=== PATIENT | female | born 1970 | race Caucasian/White ===

== ENCOUNTER 2017-06-11 22:00 | Emergency (ER) | payer OTHER ==
[~2017-06-11] VITALS: Ht 160 cm; Wt 85.7 kg
[~2017-06-11 22:00] MED LIST: ALBU8I INH; DUONI NEB; GUAI100S6 PO; PRED50 PO; XANA0.5T PO; ZITHTAB6 PO
[2017-06-11 22:05] VITALS: BP 141/74; PULSE 73; RESP 18; TEMP 97.5; O2SAT 94
[2017-06-11] MEDS ORDERED: VENTAER INH (22:20)
[2017-06-11] MEDS ORDERED: ALPR.5 PO (22:20)
[2017-06-11] MEDS ORDERED: IPRASOL INH (22:22)
[2017-06-11 22:25] VITALS: BP 138/73; PULSE 70; RESP 20; O2SAT 94
--- NOTE | 2017-06-11 22:35 | PD ---
HPI Chief Complaint: Respiratory Symptoms Time Seen by Provider: 22:20 Travel History International Travel<30 days: No Contact w/Intl Traveler<30days: No Traveled to known affect area: No History of Present Illness HPI The patient is a 47-year-old female that smokes one pack a day and was seen on the 14 of this month for bronchitis at [facility]. She is put on Zithromax and steroids. She cut back smoking only to 5-6 cigarettes a day. She still is wheezing and states the problem is gotten worse. She has only the chest tightness that she has with her usual bronchitis. She is been in multiple times for bronchitis before. PFSH Past Medical History Anxiety: Yes COPD: Yes Diminished Hearing: No Endocrine: Yes (THYROID MORELIA'S) Respiratory: Yes (COPD) Immunizations Current: Yes Thyroid Disease: Yes (Hashimotos, Graves Disease) Tetanus Vaccination: < 5 Years Influenza Vaccination: Yes ?: Not : 7 Para: 4 Miscarriage: 1 : 2 Ovarian Cysts: Yes Tubal Ligation: Yes Past Surgical History Section: Yes Cholecystectomy: Yes Gynecologic Surgery: Yes () Tonsillectomy: Yes Social History Alcohol Use: No Tobacco Use: Yes (1 PPD) Substance Use: No Allergies-Medications (Allergen,Severity, Reaction): Coded Allergies: metronidazole (Unverified Allergy, Intermediate, RASH, 06/11/17) Reported Meds & Prescriptions Reported Meds & Active Scripts Active Reported Duoneb (Ipratropium-Albuterol Neb) 0.5-2.5 Mg/3 Ml Neb 1 Nebule INH Q4HR NEB PRN Xanax (Alprazolam) 0.5 Mg Tab 0.5 Mg PO Q6H PRN Ventolin Hfa 18 GM Inh (Albuterol Sulfate) 90 Mcg/Act Aer 1 Puff INH Q4H PRN Review of Systems Except as stated in HPI: all other systems reviewed are Neg Physical Exam Narrative GENERAL: The patient is alert, oriented 3 in slight respiratory distress. Her vital signs are normal, oximetry is 94%. SKIN: Focused skin assessment warm/dry. HEAD: Atraumatic. Normocephalic. EYES: Pupils equal and round. No scleral icterus. No injection or drainage. ENT: No nasal bleeding or discharge. Mucous membranes pink and moist. NECK: Trachea midline. No JVD. CARDIOVASCULAR: Regular rate and rhythm. No murmur appreciated. RESPIRATORY: No accessory muscle use. Bilateral wheezes are heard in all lung mccann. Breath sounds equal bilaterally. GASTROINTESTINAL: Abdomen soft, non-tender, nondistended. Hepatic and splenic margins not palpable. MUSCULOSKELETAL: No obvious deformities. No clubbing. No cyanosis. No edema. NEUROLOGICAL: Awake and alert. No obvious cranial nerve deficits. Motor grossly within normal limits. Normal speech. PSYCHIATRIC: Appropriate mood and affect; insight and judgment normal. Data Data Last Documented VS Vital Signs Date Time Temp Pulse Resp B/P (MAP) Pulse Ox O2 Delivery O2 Flow Rate FiO2 06/11/17 23:18 95 Nasal Cannula 2.00 06/11/17 23:15 71 20 142/79 (100) 06/11/17 22:05 97.5 Orders Orders B-Type Natriuretic Peptide (06/11/17 22:35) Troponin I (06/11/17 22:35) Iv Access Insert/Monitor (06/11/17 22:35) Ecg Monitoring (06/11/17 22:35) Oximetry (06/11/17 22:35) Oxygen Administration (06/11/17 22:35) Chest, Pa & Lat (06/11/17 22:35) Sodium Chloride 0.9% Flush (Ns Flush) (06/11/17 22:45) Methylprednisolone So Succ Inj (Solumedr (06/11/17 22:45) Albuterol-Ipratropium Neb (Duoneb Neb) (06/11/17 22:45) Arterial Blood Gas (Abg) (06/11/17 ) Labs Laboratory Tests Test 06/11/17 22:55 06/11/17 23:00 Troponin I LESS THAN 0.02 NG/ML B-Type Natriuretic Peptide 57 PG/ML Blood Gas Puncture Site RT RADIAL Blood Gas Patient Temperature 98.6 Blood Gas HCO3 29 mmol/L Blood Gas Base Excess 4.5 mmol/L Blood Gas Oxygen Saturation 88 % Arterial Blood pH 7.41 Arterial Blood Partial Pressure CO2 46 mmHG Arterial Blood Partial Pressure O2 73 mmHG Arterial Blood Oxygen Content 18.3 Vol % Arterial Blood Carboxyhemoglobin 6.5 % Arterial Blood Methemoglobin 1.0 % Blood Gas Hemoglobin 14.8 G/DL Blood Gas Inspired Oxygen 21 % [facility] Medical Decision Making Medical Screen Exam Complete: Yes Emergency Medical Condition: Yes Medical Record Reviewed: Yes Interpretation(s) The chest x-ray shows no acute disease. The blood gases on room air show pH 7.41, CO2 46, PO2 73 with O2 sat 88% and carboxyhemoglobin level is 6.5. Differential Diagnosis Pneumonia, bronchitis, asthma, allergic reaction, tobacco abuse, COPD with acute exacerbation Narrative Course The patient has bronchitis. Even though she has bronchitis, she continues to smoke. She did get fairly good relief with the DuoNeb treatments here at the emergency department. She will be given a prescription for Levaquin and a tapered course of prednisone. The carboxyhemoglobin does play a part in in activating her hemoglobin. She does have availability of an oxygen concentrator at home and she can put this on 2-3 L nasal cannula and reduce the carboxyhemoglobin level at home. That is if she will quit smoking. Diagnosis Primary Impression: Bronchitis, acute Additional Impression: Tobacco abuse Additional Instructions: As we discussed, discontinue smoking. You can use the oxygen concentrator that you have at home on 2-3 L nasal cannula to reduce the level of carbon monoxide poisoning from the cigarettes. Follow-up with a primary care physician. If worse, return to emergency department. Med/Other Pt SpecificInfo: Prescription(s) given Scripts Prednisone (Prednisone) 50 Mg Tab 50 MG PO BID for X 4 days than daily X 4 days, #12 TAB 0 Refills Prov: Armani Alexander MD 06/11/17 Levofloxacin (Levaquin) 500 Mg Tablet 500 MG PO DAILY for Infection for 10 Days, #10 TAB 0 Refills Prov: Armani Alexander MD 06/11/17 Disposition: 01 DISCHARGE HOME Condition: Stable Armani Alexander MD Jun 11, 2017 22:35
[2017-06-11] MEDS ORDERED: SODIUM CHLORIDE 0.9% FLUSH 10 ML FLUSH IVF PRN (22:45)
[2017-06-11] MEDS ORDERED: methylPREDNISolone SOD SUCC 125 MG/2 ML VIAL IV PUSH ONE (22:45)
[2017-06-11] MEDS: RESP: ALBUTEROL 2.5 MG/IPRATROPIUM 0.5 MG NEB (SCH) INH (22:47)
[2017-06-11 23:00] VITALS: O2SAT 94
--- NOTE | 2017-06-11 23:02 | RADRPT ---
EXAM DATE/TIME: 06/11/2017 22:43 [place] COMPARISON: No previous studies available for comparison. INDICATIONS : Cough, shortness of breath for 6 days MEDICAL HISTORY : Chronic obstructive pulmonary disease. SURGICAL HISTORY : None. ENCOUNTER: Initial ACUITY: 4 - 6 days PAIN SCORE: 5/10 LOCATION: Bilateral chest FINDINGS: PA and lateral views of the chest demonstrate the lungs to be symmetrically aerated without evidence of mass, infiltrate or effusion. The cardiomediastinal contours are unremarkable. Osseous structure s are intact. CONCLUSION: No acute disease. Michi Mora MD on June 11, 2017 at 23:01 Board Certified Radiologist. This report was verified electronically.
[2017-06-11 23:13] LABS: BLOOD GAS BASE EXCESS 4.5 mmol/L (-2-2); BLOOD GAS CARBOXYHEMOGLOBIN 6.5 % (0-4); BLOOD GAS HCO3 29 mmol/L (22-26); BLOOD GAS O2 HGB SATURATION 88 % (90-100); BLOOD GAS OXYGEN CONTENT 18.3 Vol % (12.0-20.0); BLOOD GAS PCO2 46 mmHG (38-42); BLOOD GAS PO2 73 mmHG (61-120); BLOOD GAS TOTAL HGB 14.8 G/DL (12.0-16.0); TEMP CORR TO 98.6
[2017-06-11 23:14] LABS: CRITICAL VALUE YES; DRAW SITE RT RADIAL; FIO2 21 %; NUMBER OF ARTERIAL PUNCTURES 1; STAT YES; ULNAR PULSE Y
[2017-06-11 23:15] VITALS: BP 142/79; PULSE 71; RESP 20; O2SAT 95
[2017-06-11] MEDS ORDERED: PRED50 PO (23:39)
[2017-06-11] MEDS ORDERED: LEVA500T20 PO (23:39)
[2017-06-12 00:45] VITALS: BP 118/55; PULSE 68; RESP 18; O2SAT 97
[2017-06-12 01:27] VITALS: BP 116/54
== END 2017-06-12 01:29 | disposition home or self-care (01) ==
LOC: PHED 22:00
DX: J44.0 Chronic obstructive pulmonary disease with (acute) lower respiratory infection (principal); J20.9 Acute bronchitis, unspecified; F17.210 Nicotine dependence, cigarettes, uncomplicated; E06.3 Autoimmune thyroiditis; R06.02 Shortness of breath
CPT/HCPCS: 36600; 71020; 82805; 83880; 84484; 94640; 94664; 96374; 99284; J2930

== ENCOUNTER 2017-06-24 22:05 | Emergency (ER) | payer SELFPAY ==
[~2017-06-24] VITALS: Ht 167.6 cm; Wt 90.0 kg
[~2017-06-24 22:05] MED LIST changes: -ALBU8I INH; +ALPR.5 PO; -DUONI NEB; -GUAI100S6 PO; +IPRASOL INH; +LEVA500T20 PO; +VENTAER INH; -XANA0.5T PO; -ZITHTAB6 PO
[2017-06-24 22:27] VITALS: BP 198/89; PULSE 60; RESP 16; TEMP 97.7; O2SAT 98
[2017-06-24] MEDS ORDERED: ALUMINUM/MAGNESIUM/SIMETH 30 ML CUP PO ONE (23:30)
[2017-06-24] MEDS ORDERED: SODIUM CHLORIDE 0.9% FLUSH 10 ML FLUSH IV FLUSH PRN (23:30)
[2017-06-24] MEDS ORDERED: LIDOCAINE VISCOUS 2% SOLN 15 ML UDC PO ONE (23:30)
[2017-06-24] MEDS ORDERED: FAMOTIDINE 20 MG/2 ML VIAL IV PUSH ONE (23:30)
[2017-06-25] LABS: AUTOMATED NEUTROPHIL # 8.8 TH/MM3 (1.8-7.7); BASOPHIL # 0.1 TH/MM3 (0-0.2); BASOPHIL % 0.5 % (0.0-2.0); EOSINOPHIL # 0.1 TH/MM3 (0-0.4); EOSINOPHIL % 0.9 % (0.0-4.0); HEMATOCRIT 49.2 % (35.0-46.0); HEMO FLAGS DIFF FINAL; LYMPH % 14.8 % (9.0-44.0); LYMPHOCYTE # 1.7 TH/MM3 (1.0-4.8); MEAN CELL VOLUME 89.8 FL (80.0-100.0); MEAN CORPUSCULAR HEMOGLOBIN 30.1 PG (27.0-34.0); MEAN CORPUSCULAR HGB CONC 33.5 % (32.0-36.0); MONO % 6.5 % (0.0-8.0); NEUT % 77.3 % (16.0-70.0); PLATELET COUNT 203 TH/MM3 (150-450); RED BLOOD COUNT 5.48 MIL/MM3 (4.00-5.30); RED CELL DISTRIBUTION WIDTH 13.8 % (11.6-17.2); WHITE BLOOD COUNT 11.4 TH/MM3 (4.0-11.0)
[2017-06-25 00:08] LABS: ANION GAP 6 MEQ/L (5-15); AST (GOT) 15 U/L (15-37); BICARBONATE 31.4 MEQ/L (21.0-32.0); BLOOD UREA NITROGEN 11 MG/DL (7-18); CHLORIDE 99 MEQ/L (98-107); GLOMERULAR FILTRATION RATE 46 ML/MIN (>89); POTASSIUM 3.9 MEQ/L (3.5-5.1); SODIUM (NA) 136 MEQ/L (136-145)
[2017-06-25 00:09] LABS: ALT (GPT) 38 U/L (10-53)
[2017-06-25 00:11] LABS: ALKALINE PHOSPHATASE 67 U/L (45-117)
[2017-06-25 00:12] VITALS: BP 186/84; PULSE 64; RESP 14; O2SAT 98
--- NOTE | 2017-06-25 00:20 | PD ---
HPI . Dyspepsia Chief Complaint: Pain: Acute or Chronic Time Seen by Provider: 23:17 Travel History International Travel<30 days: No Contact w/Intl Traveler<30days: No Traveled to known affect area: No History of Present Illness HPI This patient presents with the chief complaint of heartburn. Onset was about 3 hours ago. It has been unrelieved by Tums. Patient reports a previous similar history. She does not take any acid reducing medications regularly. She does smoke and she has recently been treated for bronchitis first with a Z-Hamzah and steroids Levaquin and steroids. She states that she finished up this treatment 2 days ago. She currently rates her pain 10/10. No noted exacerbating or relieving factors. PFSH Past Medical History Anxiety: Yes COPD: Yes Diminished Hearing: No Endocrine: Yes (THYROID MORELIA'S) Respiratory: Yes (COPD) Immunizations Current: Yes Thyroid Disease: Yes (Hashimotos, Graves Disease) Tetanus Vaccination: > 5 Years Influenza Vaccination: No ?: Not : 7 Para: 4 Miscarriage: 1 : 2 Ovarian Cysts: Yes Tubal Ligation: Yes Past Surgical History Section: Yes Cholecystectomy: Yes Gynecologic Surgery: Yes () Tonsillectomy: Yes Social History Alcohol Use: No Tobacco Use: Yes (1 PPD) Substance Use: No Allergies-Medications (Allergen,Severity, Reaction): Coded Allergies: metronidazole (Unverified Allergy, Intermediate, RASH, 06/11/17) Reported Meds & Prescriptions Reported Meds & Active Scripts Active Prednisone 50 Mg Tab 50 Mg PO BID Levaquin (Levofloxacin) 500 Mg Tablet 500 Mg PO DAILY 10 Days Reported Duoneb (Ipratropium-Albuterol Neb) 0.5-2.5 Mg/3 Ml Neb 1 Nebule INH Q4HR NEB PRN Xanax (Alprazolam) 0.5 Mg Tab 0.5 Mg PO Q6H PRN Ventolin Hfa 18 GM Inh (Albuterol Sulfate) 90 Mcg/Act Aer 1 Puff INH Q4H PRN Review of Systems Except as stated in HPI: all other systems reviewed are Neg General / Constitutional: No: Fever, Chills Cardiovascular: Positive: Other (heartburn) Respiratory: Positive: Cough, No: Shortness of Breath Gastrointestinal: No: Nausea, Vomiting, Diarrhea, Abdominal Pain Physical Exam Narrative GENERAL: Using the Thakur-Paz Faces pain scale, her objective pain scale is 2/5. SKIN: warm/dry. No rash or lesions. HEAD: Normocephalic. Atraumatic. EYES: Pupils equal and round. No scleral icterus. No injection or drainage. ENT: No nasal bleeding or discharge. Mucous membranes pink and moist. NECK: Trachea midline. Full range of motion without pain.. CARDIOVASCULAR: Regular rate and rhythm. Heart sounds are normal. RESPIRATORY: No accessory muscle use. Clear to auscultation. Breath sounds equal bilaterally. GASTROINTESTINAL: Abdomen soft. Nontender. Bowel sounds present. Nondistended. MUSCULOSKELETAL: No obvious deformities. NEUROLOGICAL: Awake and alert. No obvious cranial nerve deficits. Motor grossly within normal limits. Normal speech. PSYCHIATRIC: Appropriate mood and affect; insight and judgment normal. Data Data Last Documented VS Vital Signs Date Time Temp Pulse Resp B/P (MAP) Pulse Ox O2 Delivery O2 Flow Rate FiO2 06/25/17 00:12 64 14 186/84 (118) 98 06/24/17 22:27 97.7 Orders Orders Complete Blood Count With Diff (06/24/17 23:22) Comprehensive Metabolic Panel (06/24/17 23:22) Lipase (06/24/17 23:22) Iv Access Insert/Monitor (06/24/17 23:22) Sodium Chloride 0.9% Flush (Ns Flush) (06/24/17 23:30) Electrocardiogram (06/24/17 23:22) Famotidine Inj (Pepcid Inj) (06/24/17 23:30) Al-Mag Hy-Si 40-40-4 Mg/Ml Liq (Mag-Al P (06/24/17 23:30) Lidocaine 2% Viscous (Xylocaine 2% Visco (06/24/17 23:30) Labs Laboratory Tests Test 06/24/17 23:38 White Blood Count 11.4 TH/MM3 Red Blood Count 5.48 MIL/MM3 Hemoglobin 16.5 GM/DL Hematocrit 49.2 % Mean Corpuscular Volume 89.8 FL Mean Corpuscular Hemoglobin 30.1 PG Mean Corpuscular Hemoglobin Concent 33.5 % Red Cell Distribution Width 13.8 % Platelet Count 203 TH/MM3 Mean Platelet Volume 7.2 FL Neutrophils (%) (Auto) 77.3 % Lymphocytes (%) (Auto) 14.8 % Monocytes (%) (Auto) 6.5 % Eosinophils (%) (Auto) 0.9 % Basophils (%) (Auto) 0.5 % Neutrophils # (Auto) 8.8 TH/MM3 Lymphocytes # (Auto) 1.7 TH/MM3 Monocytes # (Auto) 0.7 TH/MM3 Eosinophils # (Auto) 0.1 TH/MM3 Basophils # (Auto) 0.1 TH/MM3 CBC Comment DIFF FINAL Differential Comment Blood Urea Nitrogen 11 MG/DL Creatinine 1.24 MG/DL Random Glucose 138 MG/DL Total Protein 7.3 GM/DL Albumin 3.4 GM/DL Calcium Level 10.5 MG/DL Alkaline Phosphatase 67 U/L Aspartate Amino Transf (AST/SGOT) 15 U/L Alanine Aminotransferase (ALT/SGPT) 38 U/L Total Bilirubin 1.0 MG/DL Sodium Level 136 MEQ/L Potassium Level 3.9 MEQ/L Chloride Level 99 MEQ/L Carbon Dioxide Level 31.4 MEQ/L Anion Gap 6 MEQ/L Estimat Glomerular Filtration Rate 46 ML/MIN Lipase 93 U/L MDM Medical Decision Making Medical Screen Exam Complete: Yes Emergency Medical Condition: Yes Medical Record Reviewed: Yes (medical history significant for COPD and Hahimoto 's thyroiditis) Interpretation(s) EKG shows a sinus rhythm with no acute ischemic change. Differential Diagnosis Differential diagnosis of chest pain includes but is not limited to musculoskeletal pain, pulmonary embolism, acute coronary syndrome, pneumonia, pleurisy Narrative Course This patient presents with a chief complaint of dyspepsia. I have ordered a GI and IV Pepcid. CBC & BMP Diagram 06/24/17 23:38 Total Protein 7.3, Albumin 3.4, Calcium Level 10.5 H, Alkaline Phosphatase 67, Aspartate Amino Transf (AST/SGOT) 15, Alanine Aminotransferase (ALT/SGPT) 38, Total Bilirubin 1.0. Lipase is 93. This patient has recently been on steroids which probably explains her elevated white blood count. She is a smoker which probably explains her elevated H&H. Previous labs have been reviewed. Her labs tonight are not appreciably different. The history, exam, diagnostic testing, and current condition do not suggest any significant pathology to warrant further testing, continued ED treatment, admission, or surgical evaluation at this point. No EMC was found. The patient 's condition is stable and appropriate for discharge. Diagnosis Primary Impression: Dyspepsia Med/Other Pt SpecificInfo: Prescription(s) given Scripts Omeprazole Magnesium (Prilosec) 20 Mg Tab 20 MG PO DAILY, #30 Prov: Justine Mauricio MD 06/25/17 Disposition: 01 DISCHARGE HOME Condition: Stable Justine Mauricio MD Jun 25, 2017 00:20
[2017-06-25] MEDS ORDERED: PRIL20TA2 PO (00:34)
--- NOTE | 2017-06-25 10:07 | EKG ---
Date Performed: 06/24/2017 Time Performed: 23:45:29 PTAGE: 47 years EKG: Sinus rhythm WITH SINUS ARRHYTHMIA NORMAL ECG PREVIOUS TRACING : 06/23/2016 02.02 DOCTOR: Luis Miguel Cunningham Interpretating Date/Time 06/25/2017 10:05:30
== END 2017-06-25 01:15 | disposition home or self-care (01) ==
LOC: NEPC 22:05
DX: R10.13 Epigastric pain (principal); F17.210 Nicotine dependence, cigarettes, uncomplicated; E06.3 Autoimmune thyroiditis
CPT/HCPCS: 80053; 83690; 85025; 93005; 96374

== ENCOUNTER 2017-06-30 10:51 | Emergency (ER) | payer OTHER ==
[~2017-06-30] VITALS: Ht 160 cm; Wt 80.0 kg
[~2017-06-30 10:51] MED LIST changes: +PRIL20TA2 PO
[2017-06-30 11:07] VITALS: BP 125/72; PULSE 68; RESP 16; TEMP 98.7; O2SAT 97
--- NOTE | 2017-06-30 11:14 | PD ---
HPI Chief Complaint: Complaint Time Seen by Provider: 11:02 Travel History International Travel<30 days: No Contact w/Intl Traveler<30days: No Traveled to known affect area: No History of Present Illness HPI PATIENT C/O DARK URINE, FREQUENCY WELL....PATIENT STATES WHILE I'M HERE, I ALSO FEEL EAR FULLNESS AND FEELS LIKE I'M UNDER WATER, NO RINGING IN THE EARS... PFSH Past Medical History Anxiety: Yes COPD: Yes Diminished Hearing: No Endocrine: Yes (THYROID MORELIA'S) Respiratory: Yes (COPD) Immunizations Current: Yes Thyroid Disease: Yes (Hashimotos, Graves Disease) Tetanus Vaccination: > 5 Years Influenza Vaccination: Yes ?: Not : 7 Para: 4 Miscarriage: 1 : 2 Ovarian Cysts: Yes Tubal Ligation: Yes Past Surgical History Section: Yes Cholecystectomy: Yes Gynecologic Surgery: Yes () Tonsillectomy: Yes Social History Alcohol Use: No Tobacco Use: Yes (QUIT 05/2017) Substance Use: No Allergies-Medications (Allergen,Severity, Reaction): Coded Allergies: metronidazole (Unverified Allergy, Intermediate, RASH, 06/30/17) Reported Meds & Prescriptions Reported Meds & Active Scripts Active Zofran Odt (Ondansetron Odt) 4 Mg Tab 4 Mg SL Q6HR PRN Reported Duoneb (Ipratropium-Albuterol Neb) 0.5-2.5 Mg/3 Ml Neb 1 Nebule INH Q4HR NEB PRN Xanax (Alprazolam) 0.5 Mg Tab 0.5 Mg PO Q6H PRN Ventolin Hfa 18 GM Inh (Albuterol Sulfate) 90 Mcg/Act Aer 1 Puff INH Q4H PRN Review of Systems Except as stated in HPI: all other systems reviewed are Neg Physical Exam Narrative GENERAL: SKIN: Warm and dry. HEAD: Atraumatic. Normocephalic. EYES: Pupils equal and round. No scleral icterus. No injection or drainage. ENT: No nasal bleeding or discharge. Mucous membranes pink and moist. BILATERAL TM EFFUSIONS WITHOUT INFECTION (ASSISTED) NECK: Trachea midline. No JVD. CARDIOVASCULAR: Regular rate and rhythm. RESPIRATORY: No accessory muscle use. Clear to auscultation. Breath sounds equal bilaterally. GASTROINTESTINAL: Abdomen soft, non-tender, nondistended. Hepatic and splenic margins not palpable. MUSCULOSKELETAL: Extremities without clubbing, cyanosis, or edema. No obvious deformities. NO CVA TTP NEUROLOGICAL: Awake and alert. No obvious cranial nerve deficits. Motor grossly within normal limits. Five out of 5 muscle strength in the arms and legs. Normal speech. PSYCHIATRIC: Appropriate mood and affect; insight and judgment normal. Data Data Last Documented VS Orders Orders Urinalysis - C+S If Indicated (06/30/17 11:11) Labs Laboratory Tests Test 06/30/17 11:15 Urine Color YELLOW Urine Turbidity SLIGHT Urine pH 6.0 Urine Specific Bruni 1.025 Urine Protein NEG mg/dL Urine Glucose (UA) NEG mg/dL Urine Ketones NEG mg/dL Urine Occult Blood MOD Urine Nitrite NEG Urine Bilirubin NEG Urine Leukocyte Esterase TRACE Urine RBC 10-14 /hpf Urine WBC 3-5 /hpf Urine Squamous Epithelial Cells > 8 /hpf Urine Bacteria OCC /hpf Microscopic Urinalysis Comment CULT NOT INDICATED MDM Medical Decision Making Medical Screen Exam Complete: Yes Emergency Medical Condition: Yes Medical Record Reviewed: Yes Differential Diagnosis UTI V KIDNEY STONES V DEHYDRATION Narrative Course UPON PHYSICAL EXAM NO INFECTION OF TM/EAR BILATERALLY, ALSO NO REBOUND / GUARDING OR RIGIDITY OF ABDOMEN, TOLERATED PO CHALLENGE IN ED WILL D/C WITH ZOFRAN AND HYDRATING RECOMMENDATIONS Diagnosis Primary Impression: DEHYDRATION Patient Instructions: Dehydration (ED), General Instructions Additional Instructions: NO EVIDENCE OF INFECTION, ONLY OF MILD DEHYDRATION WHICH YOU CAN REPLACE ORALLY Scripts Ondansetron Odt (Zofran Odt) 4 Mg Tab 4 MG SL Q6HR Y for Nausea/Vomiting, #30 TAB 0 Refills Prov: Kwan Garcia MD 06/30/17 Disposition: 01 DISCHARGE HOME Condition: Stable Kwan Garcia MD Jun 30, 2017 11:14
[2017-06-30 11:25] LABS: BLOOD, URINE MOD (NEG); GLUCOSE,URINE NEG (NEG); KETONE, URINE NEG (NEG); NITRITE,URINE NEG (NEG)
[2017-06-30 11:31] LABS: URINE COLOR YELLOW (YELLW/STRAW)
[2017-06-30 11:33] LABS: BACTERIA, URINE OCC /hpf; COMMENT (UR) CULT NOT INDICATED; CULTURE IF INDICATED CULT NOT INDICATED; SQUAMOUS EPITHELIAL CELL URINE > 8 /hpf (0-5)
[2017-06-30] MEDS ORDERED: ZOFR4TAB3 SL (12:13)
[2017-06-30 12:25] VITALS: BP 119/74; PULSE 58; RESP 14; O2SAT 96
== END 2017-06-30 12:37 | disposition home or self-care (01) ==
LOC: PHED 10:51
DX: E86.0 Dehydration (principal); R35.0 Frequency of micturition; H93.8X3 Other specified disorders of ear, bilateral; J44.9 Chronic obstructive pulmonary disease, unspecified; E05.00 Thyrotoxicosis with diffuse goiter without thyrotoxic crisis or storm; F41.9 Anxiety disorder, unspecified; Z87.891 Personal history of nicotine dependence
CPT/HCPCS: 81001; 99283